=== PATIENT | male | born 1950 | race Caucasian/White ===

== ENCOUNTER 2021-10-17 14:10 | Observation (INO) | payer OTHER ==
[2021-10-17] MEDS ORDERED: NA CHLORIDE 0.9% 1,000 ML ONE (14:57)
[2021-10-17] MEDS ORDERED: MORPHINE 4 MG/ML SYR ONE (14:57)
[2021-10-17] MEDS ORDERED: ONDANSETRON 4 MG/2 ML VIAL ONE ×2 (14:57→18:26)
[2021-10-17 14:58] LABS: Absolute Lymphocytes (CBC) 1.1 K/uL (0.7-4.9); MPV 8.4 fL (7.6-11.3)
[2021-10-17 15:14] LABS: Albumin 3.3 g/dL (3.4-5.0); Bilirubin Total 0.3 mg/dL (0.2-1.0); Potassium 3.8 mmol/L (3.5-5.1); Protein, Total 7.4 g/dL (6.4-8.2)
--- NOTE | 2021-10-17 17:01 | RAD REPORT ---
EXAM DESCRIPTION: CT - Abdomen Pelvis Wo Contrast - 10/17/2021 4:37 pm CLINICAL HISTORY: eval for strangulated umbilical hernia Abdominal pain COMPARISON: No comparisons TECHNIQUE: Axial [address] imaging of the abdomen and pelvis was performed without IV contrast. No IV contrast was given because of allergy, abnormal renal function, patient refusal or physician re quest. Oral contrast was given. All CT scans are performed using dose optimization technique as appropriate and may include automated exposure control or mA/KV adjustment according to patient size. FINDINGS: No suspicious findings in the lung bases. Scarring and pleural thickening present in the p osterior gutter on the left. The liver, spleen and pancreas show no suspicious findings on non-contrast imaging. Gallbladder and b iliary tree are also without suspicious finding. No hydronephrosis or suspicious renal mass. Right-sided renal cortical thinning is present relative t o the left. Fullness of the right renal pelvis is believed to be normal variant. No obstructing calcu li seen. No significant adrenal finding. Isodense renal masses and pyelonephritis cannot be excluded in the absence of IV contrast. Well filled urinary bladder shows no focal bladder wall mass. Patient does have numerous bladder diverticula present. No bladder calculi seen. No prostate enlargement. No gastric dilatation or gastric wall thickening. The patient has an 8 centimeter diameter umbilical hernia. This contains a loop of small bowel, probably proximal ileum. The herniated loop of bowel osvaldo w significant tapering in the lumen as the loop enters and exits the hernia. The herniated loop of malaika wel is dilated. There is congestion and edema in the herniated fat. The oral contrast administered fo r the examination has not yet reached this portion of small bowel to determine if the herniated loop this obstructed. No appendicitis findings. No acute colon process. No free air, free fluid or pneumatosis. No bulky lymphadenopathy or mass. Small fat filled inguinal hernias are present. No suspicious bony findings. IMPRESSION: Patient has an 8 centimeter umbilical hernia containing a dilated loop of small bowel, p robably proximal ileum. The herniated fat has mild congestion or edema. The involved bowel show significant tapering of the lumen diameter entering and exiting the hernia. S trangulated hernia is suspected. Full assessment is limited is the absence of IV contrast.
[2021-10-17] MEDS ORDERED: PIPERACIL/TAZO 3.375 GM VIAL IV ONE (17:20)
--- NOTE | 2021-10-17 17:20 | EDPHYS ---
Physician Documentation [facility] Name: Duke Chen Age: 71 yrs Sex: Male : 1950 Arrival Date: 10/17/2021 Time: 14:12 Bed 17 Private MD: ED Physician Demario Payan HPI: 10/17 16:26 This 71 yrs old Male presents to ER via Ambulatory with complaints of Abdominal Pain. rn 16:26 The patient presents with abdominal pain in the periumbilical area. Onset: The rn symptoms/episode began/occurred yesterday. The symptoms do not radiate. Associated signs and symptoms: Pertinent positives: nausea and vomiting, Pertinent negatives: blood in stools, fever. The symptoms are described as sharp. Modifying factors: The symptoms are alleviated by nothing, the symptoms are aggravated by touching the area. Severity of pain: At its worst the pain was moderate in the emergency department the pain is unchanged. The patient has not experienced similar symptoms in the past. The patient has been recently seen by a physician:. Dr. Vega sent patient for incarcerated hernia, + hx of umbilical hernia but usually goes in and out. Stuck and more painful since 10AM today. + vomiting. No BM for 3 days.. Historical: - Allergies: 14:37 No Known Allergies; vg1 - Home Meds: 14:37 rosuvastatin oral [Active]; Aspirin Oral [Active]; Chlorthalidone Oral [Active]; vg1 Hydrochlorothiazide Oral [Active]; Lisinopril Oral [Active]; doxazosin oral [Active]; ezetimibe oral [Active]; - PMHx: 14:37 Hypertensive disorder; Hypercholesterolemia; vg1 - PSHx: 14:37 Stented artery; Neck; Back; vg1 - Immunization history:: Client reports receiving the 2nd dose of the Covid vaccine. - Social history:: Smoking status: Patient denies any tobacco usage or history of. - Family history:: not pertinent. - Hospitalizations: : No recent hospitalization is reported. ROS: 16:26 Constitutional: Negative for fever, chills, and weight loss, Eyes: Negative for injury, rn pain, redness, and discharge, Cardiovascular: Negative for chest pain, palpitations, and edema, Respiratory: Negative for shortness of breath, cough, wheezing, and pleuritic chest pain, Abdomen/GI: + abd pain and nausea/vomiting Back: Negative for injury and pain, : Negative for injury, bleeding, discharge, and swelling, MS/Extremity: Negative for injury and deformity, Skin: Negative for injury, rash, and discoloration, Neuro: Negative for headache, weakness, numbness, tingling, and seizure. Exam: 16:26 Constitutional: This is a well developed, well nourished patient who is awake, alert, rn and in no acute distress. Head/Face: Normocephalic, atraumatic. Eyes: Periorbital areas with no swelling, redness, or edema. ENT: MMM Cardiovascular: Regular rate and rhythm. No pulse deficits. Respiratory: No increased work of breathing, no retractions or nasal flaring. Abdomen/GI: soft only tender periumbilical with overlying skin changes and swelling. Skin: Warm, dry MS/ Extremity: Pulses equal, no cyanosis. Neuro: Awake and alert, GCS 15 Vital Signs: 14:30 BP 169 / 88; Pulse 94; Resp 20; Temp 98.1(O); Pulse Ox 97% ; Weight 107.05 kg; Height 5 vg1 ft. 10 in. (177.80 cm); Pain 7/10; 15:00 BP 131 / 69; Pulse 77; Resp 19; ll1 17:11 BP 144 / 87; Pulse 76; Resp 18; Pulse Ox 97% ; ll1 14:30 Body Mass Index 33.86 (107.05 kg, 177.80 cm) vg1 MDM: 14:23 Patient medically screened. rn 17:14 Differential diagnosis: bowel obstruction, strangulated hernia, incarcerated hernia. rn Data reviewed: vital signs, nurses notes, lab test result(s), radiologic studies, CT scan, and as a result, I will admit patient. Counseling: I had a detailed discussion with the patient and/or guardian regarding: the historical points, exam findings, and any diagnostic results supporting the discharge/admit diagnosis, lab results, radiology results, the need for further work-up and treatment in the hospital. Response to treatment: the patient's symptoms have mildly improved after treatment, and as a result, I will admit patient. Admission orders: after a detailed discussion of the patient's condition and case, the admit orders are written by me. ED course: CT shows strangulated hernia, will admit and consulting Dr. Mae now.. 10/17 14:42 Order name: CBC with Diff; Complete Time: 16:41 rn 10/17 14:42 Order name: CMP; Complete Time: 16:41 rn 10/17 14:42 Order name: Lipase; Complete Time: 16:41 rn 10/17 14:42 Order name: SARS-COV-2 RT PCR (Document "Date of Onset" if Symptomatic); Complete Time: rn 16:41 10/17 15:49 Order name: Abdomen ; Complete Time: 17:13 EDMS 10/17 14:42 Order name: IV Saline Lock; Complete Time: 14:49 rn 10/17 14:42 Order name: Labs collected and sent; Complete Time: 14:49 rn 10/17 17:14 Order name: NPO; Complete Time: 17:14 rn 10/17 18:15 Order name: EKG; Complete Time: 18:16 ss 10/17 18:15 Order name: EKG - Nurse/Tech; Complete Time: 18:23 ss Administered Medications: 15:05 Drug: NS 0.9% 1000 ml Route: IV; Rate: 1 bolus; Site: right antecubital; ll1 17:21 Follow up: Response: No adverse reaction; IV Status: Completed infusion; IV Intake: ll1 1000ml 15:06 Drug: Zofran (Ondansetron) 4 mg Route: IVP; Site: right antecubital; ll1 17:21 Follow up: Response: No adverse reaction ll1 15:07 Drug: morphine 4 mg Route: IVP; Site: right antecubital; ll1 17:21 Follow up: Response: No adverse reaction ll1 17:21 Drug: Zosyn (piperacillin-tazobactam) 3.375 grams Route: IVPB; Infused Over: 60 mins; ll1 Site: right antecubital; 18:23 Follow up: Response: No adverse reaction; IV Status: Completed infusion; IV Intake: ll1 100ml Disposition Summary: 10/17/21 17:20 Hospitalization Ordered Hospitalization Status: Inpatient Admission rn Location: Telemetry/[facility] (Inpatient) rn Condition: Stable rn Problem: new rn Symptoms: have improved rn Bed/Room Type: Standard rn Room Assignment: rn Provider: Ever Wilson(10/17/21 18:47) rn Diagnosis - Acute, strangulated umbilical hernia rn Forms: - Medication Reconciliation Form rn - SBAR form rn Signatures: Dispatcher [employer] EDMS Demario Payan MD MD rn Smirch, Shelby RN RN Elizabeth Villatoro RN RN vg1 Poly Pereira RN RN ll1 Corrections: (The following items were deleted from the chart) 15:49 14:42 Abdomen Pelvis W Con+CT.RAD.BRZ ordered. EDWA EDMS 18:47 17:20 Ryan Mae rn rn
--- NOTE | 2021-10-17 17:20 | ER ---
Nurse's Notes [facility] Name: Duke Chen Age: 71 yrs Sex: Male : 1950 Arrival Date: 10/17/2021 Time: 14:12 Bed 17 Private MD: Diagnosis: Acute, strangulated umbilical hernia Presentation: 10/17 14:30 Chief complaint: Patient states: Pt states umbilical and lower ABD pain with N/V; vg1 stated Dr Vega told him to come to ED due to a 'strangulated hernia'. Coronavirus screen: Vaccine status: Patient reports receiving the 2nd dose of the covid vaccine. Client denies travel out of the [place] in the last 14 days. Ebola Screen: Patient denies exposure to infectious person. Patient denies travel to an Ebola-affected area in the 21 days before illness onset. Initial Sepsis Screen: Does the patient meet any 2 criteria? No. Patient's initial sepsis screen is negative. Does the patient have a suspected source of infection? No. Patient's initial sepsis screen is negative. Risk Assessment: Do you want to hurt yourself or someone else? Patient reports no desire to harm self or others. Onset of symptoms was October 17, 2021. 14:30 Method Of Arrival: Ambulatory vg1 14:30 Acuity: JESSY 3 vg1 Triage Assessment: 14:37 General: Appears uncomfortable, Behavior is calm, cooperative. Pain: Complains of pain vg1 in umbilical area, right lower quadrant and left lower quadrant. GI: Reports nausea, vomiting. Historical: - Allergies: 14:37 No Known Allergies; vg1 - Home Meds: 14:37 rosuvastatin oral [Active]; Aspirin Oral [Active]; Chlorthalidone Oral [Active]; vg1 Hydrochlorothiazide Oral [Active]; Lisinopril Oral [Active]; doxazosin oral [Active]; ezetimibe oral [Active]; - PMHx: 14:37 Hypertensive disorder; Hypercholesterolemia; vg1 - PSHx: 14:37 Stented artery; Neck; Back; vg1 - Immunization history:: Client reports receiving the 2nd dose of the Covid vaccine. - Social history:: Smoking status: Patient denies any tobacco usage or history of. - Family history:: not pertinent. - Hospitalizations: : No recent hospitalization is reported. Screenin:58 Abuse screen: Denies threats or abuse. Nutritional screening: No deficits noted. ll1 Tuberculosis screening: No symptoms or risk factors identified. Fall Risk IV access (20 points). Total Clifford Fall Scale indicates No Risk (0-24 pts). Assessment: 14:58 Reassessment: No changes from previously documented assessment. Patient and/or family ll1 updated on plan of care and expected duration. Pain level reassessed. Patient is alert, oriented x 3, equal unlabored respirations, skin warm/dry/pink. 16:00 Reassessment: No changes from previously documented assessment. Patient and/or family ll1 updated on plan of care and expected duration. Pain level reassessed. Patient is alert, oriented x 3, equal unlabored respirations, skin warm/dry/pink. 17:00 Reassessment: No changes from previously documented assessment. Patient and/or family ll1 updated on plan of care and expected duration. Pain level reassessed. Patient is alert, oriented x 3, equal unlabored respirations, skin warm/dry/pink. 18:00 Reassessment: No changes from previously documented assessment. Patient and/or family ll1 updated on plan of care and expected duration. Pain level reassessed. Patient is alert, oriented x 3, equal unlabored respirations, skin warm/dry/pink. 18:22 GI: Bowel sounds present X 4 quads. Abd is soft Abdomen is tender to palpation in ll1 umbilical area. Vital Signs: 14:30 BP 169 / 88; Pulse 94; Resp 20; Temp 98.1(O); Pulse Ox 97% ; Weight 107.05 kg; Height 5 vg1 ft. 10 in. (177.80 cm); Pain 7/10; 15:00 BP 131 / 69; Pulse 77; Resp 19; ll1 17:11 BP 144 / 87; Pulse 76; Resp 18; Pulse Ox 97% ; ll1 14:30 Body Mass Index 33.86 (107.05 kg, 177.80 cm) vg1 ED Course: 14:12 Patient arrived in ED. ds1 14:23 Demario Payan MD is Attending Physician. rn 14:31 Triage completed. vg1 14:33 Poly Pereira RN is Primary Nurse. ll1 14:33 Arm band placed on Patient placed in an exam room, on a stretcher. ll1 14:40 Inserted saline lock: 22 gauge in right antecubital area, using aseptic technique. ll1 Blood collected. 14:58 Patient has correct armband on for positive identification. Bed in low position. Call ll1 light in reach. Side rails up X 1. Pulse ox on. NIBP on. 16:39 Abdomen In Process Unspecified. EDAR 17:19 Ryan Mae MD is Hospitalizing Provider. rn 18:22 No provider procedures requiring assistance completed. Patient admitted, IV remains in ll1 place. 18:47 Ever Wilson MD is Hospitalizing Provider. rn Administered Medications: 15:05 Drug: NS 0.9% 1000 ml Route: IV; Rate: 1 bolus; Site: right antecubital; ll1 17:21 Follow up: Response: No adverse reaction; IV Status: Completed infusion; IV Intake: ll1 1000ml 15:06 Drug: Zofran (Ondansetron) 4 mg Route: IVP; Site: right antecubital; ll1 17:21 Follow up: Response: No adverse reaction ll1 15:07 Drug: morphine 4 mg Route: IVP; Site: right antecubital; ll1 17:21 Follow up: Response: No adverse reaction ll1 17:21 Drug: Zosyn (piperacillin-tazobactam) 3.375 grams Route: IVPB; Infused Over: 60 mins; ll1 Site: right antecubital; 18:23 Follow up: Response: No adverse reaction; IV Status: Completed infusion; IV Intake: ll1 100ml Intake: 17:21 IV: 1000ml; Total: 1000ml. ll1 18:23 IV: 100ml; Total: 1100ml. ll1 Outcome: 17:20 Decision to Hospitalize by Provider. rn 18:22 Admitted to OR accompanied by tech, via stretcher, with chart, Report called to OR ll1 tech 18:22 Condition: stable 18:22 Instructed on the need for admit. 18:24 Patient left the ED. ll1 18:50 Patient left the ED. Signatures: Dispatcher [employer] EDAR Kalin Quyen ds1 Demario Payan MD MD rn Smirch, Shelby, RN RN ss Garcia, Victoria, RN RN 1 Poly Pereira RN RN [facility]
[2021-10-17] MEDS ORDERED: NA CHLORIDE 0.9% 100 ML IV ONE (17:21)
[2021-10-17] MEDS ORDERED: FENTANYL CITR 100 MCG/2 ML ONE (18:25)
[2021-10-17] MEDS ORDERED: GLYCOPYRROLATE 0.2 MG/ML SYR ONE (18:25)
[2021-10-17] MEDS ORDERED: MIDAZOLAM HCL 2 MG/2 ML INJ ONE (18:25)
[2021-10-17] MEDS ORDERED: LIDOCAINE 1% MPF 5 ML VIAL ONE (18:25)
[2021-10-17] MEDS ORDERED: propofoL 200 MG/20 ML VIAL IV ONE (18:25)
[2021-10-17] MEDS ORDERED: dexAMETHasone 4 MG/ML VIAL ONE (18:26)
[2021-10-17] MEDS ORDERED: ROCURONIUM 50 MG/5 ML VIAL IV ONE (18:26)
[2021-10-17] MEDS ORDERED: BUPIVACAINE 0.25% PF 10 ML VIAL ONE (18:26)
[2021-10-17] MEDS ORDERED: KETOROLAC 30 MG/ML INJ ONE (18:26)
[2021-10-17] MEDS ORDERED: Ringers Lactate 1,000 ML IV ONE ×2 (18:41→20:00)
[2021-10-17] MEDS ORDERED: ACETAMINOPHEN 500 MG TAB PO PRN (19:20)
[2021-10-17] MEDS ORDERED: ONDANSETRON 4 MG/2 ML VIAL IV PRN (19:20)
[2021-10-17] MEDS ORDERED: HYDROMORPHONE HCL 0.5 MG/0.5 ML INJ IV PRN (19:20)
--- NOTE | 2021-10-17 20:00 | P.OP ---
Preoperative diagnosis: Incarcerated Strangulate Umbilical Hernia Postoperative diagnosis: Incarcerated Strangulate Umbilical Hernia Primary procedure: Open Umbilical Hernia Repair with mesh Anesthesia: GETA Estimated blood loss: <10cc Specimen: none Findings: Incarcerated partially ischemic small bowel Complications: None Implants: Bard Ventralex Patch Mesh 6 cm Transferred to: Recovery Room Condition: Good
[2021-10-17] MEDS ORDERED: HYDROMORPHONE HCL 1 MG/ML INJ IV PRN (20:11)
[2021-10-17] MEDS ORDERED: HYDROCODONE/APAP 7.5/325 MG TAB PO PRN (20:11)
[2021-10-17 20:38] VITALS: O2SAT 98
[2021-10-17] MEDS: INSULIN -REGULAR HUMAN 50 UNIT/0.5 ML ML SQ SCH (21:00)
[2021-10-17 21:05] VITALS: BMI 33.8
[2021-10-17] MEDS: NA CHLORIDE 0.9% 1,000 ML IV SCH (21:56)
[2021-10-17] MEDS: CIPROFLOXACIN 400mg IV 400 MG/200 ML BAG IV SCH (21:56)
[2021-10-17] MEDS ORDERED: MELATONIN 5 MG TABLET PO PRN (22:45)
[2021-10-17] MEDS ORDERED: PROMETHAZINE INJ 25 MG/ML AMP IV ONE (22:45)
[2021-10-18] MEDS: METRONIDAZOLE 500mg IVPB 500 MG/100 ML BAG IV SCH ×3 (05:40→12:09)
[2021-10-18 05:47] LABS: Absolute Lymphocytes (CBC) 0.8 K/uL (0.7-4.9); Hematocrit 38.3 % (39.6-49.0); Lymphocytes % 9.1 % (15.3-44.8); MPV 8.7 fL (7.6-11.3); RBC Red Blood Cell Count 4.42 M/uL (4.33-5.43)
[2021-10-18 06:04] LABS: Albumin 2.8 g/dL (3.4-5.0); Bilirubin Total 0.3 mg/dL (0.2-1.0); Magnesium 2.2 mg/dL (1.8-2.4); Phosphorus 3.4 mg/dL (2.5-4.9); Potassium 5.2 mmol/L (3.5-5.1); Protein, Total 6.7 g/dL (6.4-8.2)
--- NOTE | 2021-10-18 07:07 | OP ---
Date of Procedure: 10/17/2021 Surgeon: Ryan Mae MD, Preoperative Diagnosis: Incarcerated strangulated umbilical hernia. Postoperative Diagnosis: Incarcerated strangulated umbilical hernia. Procedure: Open umbilical hernia repair with mesh. Anesthesia: General endotracheal. Estimated Blood Loss: Less than 10 cc. Specimen: None. Findings: Incarcerated partially ischemic small bowel, which returned to normalcy with reduction. Complications: None. Implants: Bard Ventralex patch mesh 6 cm round. The patient transferred to recovery room in good co ndition. Procedure In Detail: After informed consent was obtained, patient was brought to the operating room, prepped and draped in the usual sterile fashion. After adequate anesthesia was achieved, a curvilin ear incision was made at the infraumbilical position down to subcutaneous tissues. Electrocautery wa s used to dissect down to the subcutaneous fat. I then performed digital manual dissection circumfer entially around to dissect an incarcerated strangulated omentum and small bowel containing umbilical hernia. After I opened the hernia sac, I was able to reduce the fat into the preperitoneal space aft er slightly opening the abdominal defect where the small bowel was partially ischemic. After I opene d the defect in the abdominal wall slightly enlarging the neck of the hernia defect, I noted that the small bowel pinked up quite nicely. I brought into the field, examined it. There was no evidence o f necrosis and as such, it appeared completely normal after reduction of the omentum and inspection o f the small bowel segment after the neck of the hernia defect was opening allowed for improved blood supply. The proximal and distal bowel were examined for approximately 3 or 4 cm on each side. It ap peared widely viable as well. I returned the small bowel to the preperitoneal position and covered i t with omentum at this point in the normal anatomic position. At this point, I swept freeing the pre peritoneal fat on the inner peritoneal lining using a combination of electrocautery and blunt dissect ion. I then inspected the area for good landing zone for approximately 6 cm Bard Ventralex Hernia Pa tch System 6 cm round. After this was sized appropriately, I used a #1 PDS sutures to parachute this in the preperitoneal position. I then secured it circumferentially around using the same said #1 PD S sutures. I then closed the defect over the top after irrigating the area copiously. The mesh was in good apposition to the anterior abdominal wall. The defect in the midline was closed using a runn ing #1 PDS suture. I then re-secured the umbilicus tissue deep dermal tissue to the sail/strap of th e hernia patch using a 3-0 Vicryl suture to involute the umbilicus at this point. I then irrigated t he area once again and at this point, I closed the deep dermal planes using 3-0 Vicryl suture and the skin was closed with 4-0 Monocryl in a running fashion. Dermabond was placed at the top. The patie nt tolerated the procedure well without evidence of complication, transferred to PACU in good conditi on. All counts were correct at the end of the case. UMA/YAEL Voice ID: [id number] Report ID: [id number]
[2021-10-18] MEDS: INSULIN -REGULAR HUMAN 50 UNIT/0.5 ML ML SQ SCH ×2 (07:30→11:30)
[2021-10-18] MEDS ORDERED: ENOXAPARIN 30 MG/0.3 ML SQ SCH (09:00)
[2021-10-18] MEDS: NA CHLORIDE 0.9% 1,000 ML IV SCH (09:20)
[2021-10-18] MEDS: CIPROFLOXACIN 400mg IV 400 MG/200 ML BAG IV SCH (09:31)
--- NOTE | 2021-10-18 10:31 | CON ---
Date of Consultation: 10/17/2021 Brief History Of Present Illness: The patient is a 71-year-old male with a past medical history of traumatic brain injury, who presents to the hospital with family after onset of abdominal pain beginning yesterday. He states that the symptoms were predominantly nausea, some vomiting, severe abdominal pain. Since getting pain medication, significantly improved, but not resolved. He has noticed skin changes now with discoloration of his umbilicus, where a large protruding lump is present. This lump has been present for several years, but he has never had issues before like this. They normally came in and out; on this particular occasion, it came out and has stuck out. He has not had a bowel movement in 3 days. Otherwise, no fever, chills. No previous surgical history of this area. Past Medical History: Significant for hypertension, hypercholesterolemia, and traumatic brain injury. Past Surgical History: He has had spinal surgery for fracture. He has had a coronary artery stent in 2013. Home Medications: Include aspirin, pravastatin, hydrochlorothiazide, lisinopril, doxazosin, ezetimibe. Social History: He denies smoking, alcohol, or recreational drug use. Review of Systems: Ten-point review of systems other than HPI, denies. Physical Examination: Vital Signs: At the time of my examination, blood pressure noted pulse 94, respiratory rate 20, temperature 98.1, pulse ox 97% on room air. General: He is awake, alert, oriented. Psychiatric: He answers questions appropriately and is oriented to person, place, time, and event. HEENT: Otherwise has evidence of previous scars from TBI as described above. Neck: Surgical scar evident as well. Otherwise, the neck is supple without any JVD. Chest: Normal expansion and excursion. Cardiovascular: Regular rate and rhythm. Pulmonary: Clear to auscultation bilaterally. Abdomen: Obese with strangulated, incarcerated umbilical hernia with supraumbilical distention and skin changes with some discoloration of skin nonreducible. Extremities: No clubbing, cyanosis, edema. Skin: Warm and dry. Laboratory Data: Revealed a white blood cell count of 9.9, hemoglobin 12.6, hematocrit of 38.0, platelet count is 183, neutrophils are 82%. Sodium 136, potassium 3.9, chloride 103, carbon dioxide 26, BUN 32, creatinine 2.34, glucose 128. His total bilirubin 0.3, AST 29, ALT 34, alkaline phosphatase 105. Lipase 73. COVID was negative. He had imaging performed, which included a CT abdomen and pelvis, officially read as the patient has an 8 cm umbilical hernia containing dilated loops of small bowel, probably proximal ileum. Herniated fat has mild congestion or edema involving bowel. Showed significant change in diameter entering and exiting the hernia, strangulated hernia suspected. Assessment And Plan: This is a 71-year-old gentleman who presents with signs and symptoms of strangulated umbilical hernia with intestine contained. 1. IV fluid hydration. 2. Antibiotic coverage. 3. I have explained risks, benefits, and alternatives of open umbilical hernia repair, possible bowel resection, and indicated procedures including, but not limited to, bleeding, infection, damage to surrounding tissue, need further operation and procedures, trouble with implants and devices. The patient agreed to proceed as indicated. Thank you for this consult. RAJNI Voice ID: [id number] Report ID: [id number] [facility] CENTERCristina
--- NOTE | 2021-10-18 10:51 | EKG ---
Test Date: 2021-10-17 Test Time: 18:26:06 Air Control/Anti Air Warfare Officer: SHARA MEASUREMENT RESULTS: Intervals: Rate: 81 MA: 142 QRSD: 92 QT: 394 QTc: 457 [place]: P: 53 MA: 142 QRS: 59 T: 64 INTERPRETIVE STATEMENTS: Normal sinus rhythm Normal ECG No previous ECG available for comparison Electronically Signed On 10-18-21 10:50:07 CDT by Navarro Castle
[2021-10-18] MEDS ORDERED: METRONIDAZOLE 500mg IVPB 500 MG/100 ML BAG IV SCH (14:00)
[2021-10-18 16:39] VITALS: BP 155/69; TEMP 96.5
[2021-10-18] MEDS ORDERED: ROSUVASTATIN 10 MG TAB PO SCH (21:00)
[2021-10-19] MEDS ORDERED: HYDROCHLOROTHIAZIDE PO SCH (09:00)
[2021-10-19] MEDS ORDERED: FAMOTIDINE 20 MG TAB PO SCH (09:00)
[2021-10-19] MEDS ORDERED: EZETIMIBE 10 MG TAB PO SCH (09:00)
[2021-10-19] MEDS ORDERED: DOXAZOSIN 2 MG TAB PO SCH (09:00)
[2021-10-19] MEDS ORDERED: LISINOPRIL PO SCH (09:00)
[2021-10-19] MEDS ORDERED: ASPIRIN 81 MG CHEWABLE TABLET PO SCH (09:00)
[2021-10-19] MEDS ORDERED: CHLORTHALIDONE 25 MG TAB PO SCH (09:00)
== END 2021-10-18 16:35 | disposition home or self-care (01) ==
LOC: ER 14:10 → 2ND 19:20 → INTOOBSV 19:20
PROVIDERS: ADMIT Hospitalist; ATTEND Hospitalist
PROC: 0WUF0JZ Supplement Abdominal Wall with Synthetic Substitute, Open Approach (ICD-10-PCS; principal; 2021-10-17 19:00)
DX: K42.0 Umbilical hernia with obstruction, without gangrene (principal); I10 Essential (primary) hypertension; E78.00 Pure hypercholesterolemia, unspecified; I25.10 Atherosclerotic heart disease of native coronary artery without angina pectoris; M19.90 Unspecified osteoarthritis, unspecified site; Z87.820 Personal history of traumatic brain injury; Z79.82 Long term (current) use of aspirin; Z79.899 Other long term (current) drug therapy; Z95.5 Presence of coronary angioplasty implant and graft; Z20.822 Contact with and (suspected) exposure to COVID-19
CPT/HCPCS: 49587; 96365; 96361; 93005; 85025 ×2; 36415; 83735; 84100; 82947 ×4; 83690; 80053 ×2; 74176; 97116; 97161; 96375; 99285; U0003; J2704; J1100; J2550; J2543; J1650; J2250; J3010; J7120 ×2; J7030 ×2; J3490 ×3; J2405 ×2; J0744 ×2; G0378 ×3